=== PATIENT | female | born 1965 | race Caucasian/White ===

== ENCOUNTER 2018-04-14 23:53 | Observation (INO) | payer OTHER, SELFPAY ==
[2018-04-15 01:12] LABS: CKMB 2.9 ng/mL (0-6.6); Troponin I Less than 0.010 ng/mL (< 0.028)
[2018-04-15] MEDS ORDERED: Ondansetron ODT 4 MG TAB SL PRN (02:21)
[2018-04-15] MEDS ORDERED: Acetaminophen 325 MG TAB PO PRN (02:21)
[2018-04-15] MEDS ORDERED: Ondansetron HCl/PF 4 MG/2 ML Vial IVP PRN (02:21)
[2018-04-15 02:53] VITALS: BMI 23.4
[2018-04-15 04:26] LABS: Troponin I Less than 0.010 ng/mL (< 0.028)
[2018-04-15] MEDS ORDERED: Nicotine 21 MG PATCH TD SCH (06:00)
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
[2018-04-15] MEDS ORDERED: Aspirin 81 mg Enteric Coated Tablet PO SCH (09:00)
[2018-04-15] MEDS ORDERED: Famotidine/PF 20 mg/2ml Vial SLOW IVP SCH (09:00)
[2018-04-15] MEDS ORDERED: Enoxaparin Sodium 40 MG/0.4 ML SYRINGE SC SCH (09:00)
[2018-04-15 15:46] VITALS: BP 115/53; TEMP 97.8
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
--- NOTE | 2018-04-17 13:29 | EKG ---
Test Reason : Blood Pressure : / mmHG Vent. Rate : 052 BPM Atrial Rate : 052 BPM P-R Int : 154 ms QRS Dur : 092 ms QT Int : 456 ms P-R-T Axes : -07 023 013 degrees QTc Int : 424 ms Sinus bradycardia with Premature atrial complexes Confirmed by GILBERT SHARMA ([id number]), newspaper or periodical editor IZZY WOLFF ([id number] on 04/17/2018 1:29:04 PM Referred By: Confirmed By:GILBERT SHARMA
== END 2018-04-15 16:50 | disposition home or self-care (01) ==
LOC: ERS 23:53 → 2SW 04-15 01:50
PROVIDERS: ADMIT Internal Medicine; ATTEND Internal Medicine
DX: R07.89 Other chest pain (principal); E78.5 Hyperlipidemia, unspecified; F17.210 Nicotine dependence, cigarettes, uncomplicated; F12.10 Cannabis abuse, uncomplicated; Z88.0 Allergy status to penicillin
CPT/HCPCS: 36415; 82553; 84484; 93005; 93017; 93306; 96372; 96374; 99406; A4216; G0378; J1650; S0028

== ENCOUNTER 2019-04-20 18:44 | Inpatient (IN) | payer OTHER, SELFPAY ==
[~2019-04-20 18:44] MED LIST: ISOVUE-370 76%-LOCM 1 ML ONE; Lidocaine 1% PF 5 ML VIAL ONE; Ondansetron PF 4 MG/2 ML Vial ONE; PHENYLEPHRINE-NS 100 MCG/ML 10 ML SYRINGE ONE; PROPOFOL 200 MG/20 ML VIAL ONE; Succinylcholine Chloride 20 MG/ML 10 ml SYRINGE FS ONE; ePHEDrine 50 MG/ML VIAL ONE
[2019-04-20] MEDS ORDERED: Fentanyl 100 MCG/2 ML VIAL ONE ×4 (18:56→21:28)
[2019-04-20 19:15] LABS: #Basophils 0.1 thou/uL (0.0-0.2); #Eosinphils 0.1 thou/uL (0.0-0.7); #Lymphocytes 4.1 thou/uL (1.20-3.40); #Monocytes 0.8 thou/uL (0.11-0.59); #Neutrophils 11.2 thou/uL (1.40-6.50); %Basophils 0.8 % (0.0-1.0); %Eosinophils 0.5 % (0.0-10.0); %Lymphocytes 25.3 % (21.0-51.0); %Monocytes 4.8 % (0.0-10.0); %Neutrophils 68.6 % (42.0-75.0); Hemoglobin 14.7 g/dL (12.0-16.0); Mean Corpuscular HGB CONC 34.7 g/dL (32.0-36.0); Mean Corpuscular Hemoglobin 31.8 pg (27.0-31.0); Mean Corpuscular Volume 91.8 fL (78.0-98.0); Mean Platelet Volume 6.8 fL (7.4-10.4); Platelet Count 342 thou/uL (130-400); RBC Distribution Width 12.9 % (11.5-14.5); Red Blood Cell (RBC) Count 4.61 mill/uL (4.20-5.40); White Blood Cell (WBC) Count 16.3 thou/uL (4.8-10.8)
[2019-04-20 19:25] LABS: ALT (SGPT) 25 U/L (8-55); AST (SGOT) 22 U/L (5-34); Albumin 4.2 g/dL (3.5-5.0); Alcohol 116 mg/dL (Less than 10); Alkaline Phosphatase 71 U/L (40-110); Anion Gap 18 mmol/L (10-20); BUN (Urea Nitrogen) 11 mg/dL (9.8-20.1); Bilirubin, Total 0.2 mg/dL (0.2-1.2); Calc. Creatinine Clearance 0 mL/min (70-130); Calcium 9.3 mg/dL (7.8-10.44); Carbon Dioxide 14 mmol/L (22-29); Chloride 106 mmol/L (98-107); Estimated GFR-MDRD 61; Globulin 2.7 g/dL (2.4-3.5); Glucose 111 mg/dL (70-105); Lipase 14 U/L (8-78); Potassium 3.4 mmol/L (3.5-5.1); Protein, Total 6.9 g/dL (6.0-8.3); Sodium 135 mmol/L (136-145)
[2019-04-20 19:28] LABS: Prothrombin Time 13.6 SEC (12.0-14.7)
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
[2019-04-20] MEDS ORDERED: Neomycin-Polymyxin 1 ML AMP ONE ×3 (20:12→21:52)
[2019-04-20] MEDS ORDERED: Adacel (T-DAP) 0.5 ML SYRINGE ONE (20:22)
[2019-04-20] MEDS ORDERED: Morphine 4 MG/ML VIAL ONE (20:22)
[2019-04-20] MEDS ORDERED: Ondansetron PF 4 MG/2 ML Vial ONE (20:29)
[2019-04-20] MEDS ORDERED: traMADol HCl 50 MG TAB PO PRN (20:50)
[2019-04-20] MEDS ORDERED: Morphine 4 MG/ML VIAL SLOW IVP PRN (20:50)
[2019-04-20] MEDS ORDERED: HYDROcodone/Acetaminophen 10/325 mg Tablet PO PRN ×2 (20:50)
[2019-04-20] MEDS ORDERED: Ondansetron PF 4 MG/2 ML Vial IVP PRN (20:50)
[2019-04-20] MEDS ORDERED: Morphine 2 MG/ML SYRINGE IVP PRN (20:50)
[2019-04-20] MEDS ORDERED: Fentanyl 100 MCG/2 ML VIAL SLOW IVP PRN (20:50)
[2019-04-20] MEDS ORDERED: Acetaminophen 325 MG TAB PO PRN (20:50)
[2019-04-20] MEDS ORDERED: Midazolam HCl 2 mg/2 ml Vial ONE (21:01)
[2019-04-20] MEDS ORDERED: Gentamicin 80 MG/2 ML VIAL ONE (21:39)
[2019-04-20] MEDS ORDERED: Potassium Phosphate 30 MMOL in Sodium Chloride 0.9% 500 ML IVPB SCH (22:00)
[2019-04-20 22:06] LABS: Magnesium 1.9 mg/dL (1.6-2.6)
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
[2019-04-20] MEDS ORDERED: diphenhydrAMINE 25 MG CAP PO PRN (22:53)
[2019-04-20] MEDS ORDERED: diphenhydrAMINE 50 MG/ML VIAL IM PRN (22:53)
[2019-04-20] MEDS ORDERED: diphenhydrAMINE 50 MG/ML VIAL IVP PRN (22:53)
[2019-04-20] MEDS ORDERED: HYDROmorphone 2 MG/ML VIAL SLOW IVP PRN (22:53)
[2019-04-20] MEDS ORDERED: Morphine Sulfate 2 MG/ML SYRINGE SLOW IVP PRN (22:53)
[2019-04-20] MEDS ORDERED: Ondansetron HCl/PF 4 MG/2 ML Vial IVP PRN (22:53)
[2019-04-20] MEDS ORDERED: Naloxone HCl 0.4 mg/ml Vial IV PRN (22:53)
[2019-04-20] MEDS ORDERED: PACU-Morphine 4MG/ML VIAL SLOW IVP PRN (22:53)
[2019-04-20] MEDS ORDERED: Promethazine HCl 25 MG/ML VIAL SLOW IVP PRN (22:53)
[2019-04-20] MEDS ORDERED: Meperidine HCl/PF 25 MG/ML VIAL SLOW IVP PRN (22:53)
[2019-04-20] MEDS ORDERED: Promethazine HCl 25 MG/ML VIAL IM PRN ×2 (22:53)
[2019-04-20] MEDS ORDERED: Zolpidem Tartrate 5 MG TAB PO PRN (22:53)
[2019-04-20] MEDS ORDERED: Communication Order-Pharmacy FS SCH (23:00)
[2019-04-20] MEDS ORDERED: fentaNYL Citrate/PF 2,000 MCG in Sodium Chloride 0.9% 60 ML IV PRN (23:15)
[2019-04-21] MEDS: Ibuprofen 600 MG TAB PO SCH ×4 (00:30→22:03)
[2019-04-21] MEDS: Aspirin 81 mg Enteric Coated Tablet PO SCH ×3 (00:30→20:32)
[2019-04-21 00:39] VITALS: BMI 29.8
[2019-04-21] MEDS ORDERED: Potassium Phosphate 30 MMOL in Sodium Chloride 0.9% 500 ML IVPB SCH (00:45)
[2019-04-21] MEDS: Sodium Chloride 0.9% 1,000 ML IV SCH ×3 (00:48→20:31)
--- NOTE | 2019-04-21 04:53 | OP ---
DATE OF PROCEDURE: 04/20/2019 PREOPERATIVE DIAGNOSIS: Contaminated degloving laceration of the left forearm from just above the elbow crease to just distal to the wrist crease with laceration of muscle bellies including the palmaris longus and the flexor digitorum profundus to the ring and little fingers. The length of the laceration was 29 cm. PROCEDURE PERFORMED: Irrigation and debridement of the left forearm with partial repair of the muscle belly of the palmaris longus and of the flexor digitorum profundus to the 4th and 5th fingers and very loose closure of the wound. ANESTHESIA: General. TECHNIQUE: The patient received preoperative IV antibiotics, taken to the operating room, placed in supine position. Satisfactory general anesthesia was performed. The forearm had a degloving injury with only about an inch and a half of the skin still attached to the underlying tissue on the ulnar aspect of the forearm. The dorsal and flexor muscles were visualized. The palmaris longus muscle had been completely torn apart and the flexor muscles to the little finger and the ring finger were torn in the mid muscle level. There was significant amount of contamination and initially grass, dirt, and a thorn from a flour was removed and then the entire forearm was copiously irrigated with antibiotic solution using the high-speed high school computer science teacher. The muscle bellies were then more approximated using 0 Vicryl and the skin was loosely closed using Steri-Strips in a crossover configuration. The small venous that had been torn were coagulated. The major blood vessels to the hand were still intact and after the loose closure was performed, the patient's hand had good capillary refill. Sterile dressing along with a long-arm posterior splint with the elbow at 90 degrees and the wrist at 20 degrees of flexion and the finger slightly flexed was placed and allowed to harden. The patient was then awakened, extubated, and transferred to recovery room in stable condition. ESTIMATED BLOOD LOSS: 50 mL. COMPLICATIONS: None. Job ID: [id number]
[2019-04-21] MEDS: CEFAZOLIN 2 GM in Premix Bag 1 BAG IVPB SCH ×3 (05:11→22:04)
[2019-04-21] MEDS: Gentamicin Sulfate 80 MG in Premix Bag 1 BAG IVPB SCH ×3 (05:15→23:13)
[2019-04-21 07:31] LABS: Anion Gap 15 mmol/L (10-20); BUN (Urea Nitrogen) 12 mg/dL (9.8-20.1); Calc. Creatinine Clearance 81 mL/min (70-130); Calcium 8.5 mg/dL (7.8-10.44); Carbon Dioxide 22 mmol/L (22-29); Chloride 105 mmol/L (98-107); Estimated GFR-MDRD 60; Glucose 178 mg/dL (70-105); Magnesium 1.8 mg/dL (1.6-2.6); Phosphorus 4.8 mg/dL (2.3-4.7); Potassium 4.6 mmol/L (3.5-5.1); Sodium 137 mmol/L (136-145)
[2019-04-21] MEDS ORDERED: Magnesium 2 GM/50 ML 2 GM in Premix Bag 1 BAG IVPB SCH (07:45)
[2019-04-21] MEDS ORDERED: Oxazepam 10 MG CAP PO SCH (07:45)
[2019-04-21] MEDS ORDERED: Famotidine 20 MG TAB PO SCH (09:00)
[2019-04-21] MEDS ORDERED: TETANUS AND DIPHTHERIA TOX/PF 0.5 ML DISP.SYRIN IM SCH (09:00)
[2019-04-21] MEDS: Ondansetron PF 4 MG/2 ML Vial IVP PRN ×2 (09:04→15:52)
[2019-04-21] MEDS: Acetaminophen 500 MG TAB PO SCH ×3 (09:04→20:32)
[2019-04-21] MEDS: Folic Acid 1 MG TAB PO SCH (09:04)
[2019-04-21] MEDS: Senokot S 8.6-50 MG TAB PO SCH ×2 (09:05→20:32)
[2019-04-21] MEDS: Thiamine 100 MG TAB PO SCH (09:05)
[2019-04-21] MEDS: Polyethylene Glycol 3350 17 GM Packet PO SCH (09:14)
[2019-04-21 09:47] LABS: #Lymphocytes 0.6 thou/uL (1.20-3.40); #Monocytes 0.8 thou/uL (0.11-0.59); #Neutrophils 12.5 thou/uL (1.40-6.50); %Basophils 0.1 % (0.0-1.0); %Lymphocytes 4.4 % (21.0-51.0); %Monocytes 5.4 % (0.0-10.0); %Neutrophils 90.1 % (42.0-75.0); Hemoglobin 11.8 g/dL (12.0-16.0); Mean Corpuscular HGB CONC 34.9 g/dL (32.0-36.0); Mean Corpuscular Hemoglobin 31.7 pg (27.0-31.0); Mean Platelet Volume 7.1 fL (7.4-10.4); Platelet Count 219 thou/uL (130-400); RBC Distribution Width 12.9 % (11.5-14.5); Red Blood Cell (RBC) Count 3.73 mill/uL (4.20-5.40); White Blood Cell (WBC) Count 13.9 thou/uL (4.8-10.8)
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
[2019-04-21] MEDS: Oxazepam 10 MG CAP PO SCH ×2 (15:42→22:03)
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
[2019-04-22] MEDS ORDERED: Calcium Carbonate 500 MG ChewTAB PO PRN (00:39)
[2019-04-22] MEDS: Acetaminophen 500 MG TAB PO SCH ×5 (01:15→23:18)
[2019-04-22] MEDS: CEFAZOLIN 2 GM in Premix Bag 1 BAG IVPB SCH ×3 (05:25→22:08)
[2019-04-22] MEDS: Sodium Chloride 0.9% 1,000 ML IV SCH ×2 (05:25→16:33)
[2019-04-22] MEDS: Oxazepam 10 MG CAP PO SCH ×3 (05:25→22:09)
[2019-04-22] MEDS: Ibuprofen 600 MG TAB PO SCH ×3 (05:25→22:09)
[2019-04-22] MEDS: Gentamicin Sulfate 80 MG in Premix Bag 1 BAG IVPB SCH ×3 (05:26→23:18)
[2019-04-22 05:59] LABS: #Lymphocytes 1.9 thou/uL (1.20-3.40); #Neutrophils 9.7 thou/uL (1.40-6.50); %Basophils 0.1 % (0.0-1.0); %Eosinophils 0.2 % (0.0-10.0); %Lymphocytes 15.4 % (21.0-51.0); %Neutrophils 76.4 % (42.0-75.0); Hemoglobin 10.5 g/dL (12.0-16.0); Mean Corpuscular HGB CONC 33.2 g/dL (32.0-36.0); Mean Corpuscular Hemoglobin 31.2 pg (27.0-31.0); Mean Corpuscular Volume 93.8 fL (78.0-98.0); Mean Platelet Volume 7.2 fL (7.4-10.4); Platelet Count 197 thou/uL (130-400); Red Blood Cell (RBC) Count 3.38 mill/uL (4.20-5.40); White Blood Cell (WBC) Count 12.6 thou/uL (4.8-10.8)
[2019-04-22 06:11] LABS: Anion Gap 13 mmol/L (10-20); BUN (Urea Nitrogen) 19 mg/dL (9.8-20.1); Calc. Creatinine Clearance 83 mL/min (70-130); Calcium 8.4 mg/dL (7.8-10.44); Carbon Dioxide 21 mmol/L (22-29); Chloride 108 mmol/L (98-107); Estimated GFR-MDRD 62; Glucose 124 mg/dL (70-105); Magnesium 2.1 mg/dL (1.6-2.6); Phosphorus 3.1 mg/dL (2.3-4.7); Potassium 4.2 mmol/L (3.5-5.1); Sodium 138 mmol/L (136-145)
[2019-04-22] MEDS: Thiamine 100 MG TAB PO SCH (08:59)
[2019-04-22] MEDS: Aspirin 81 mg Enteric Coated Tablet PO SCH ×2 (08:59→20:32)
[2019-04-22] MEDS: Senokot S 8.6-50 MG TAB PO SCH ×2 (09:00→20:33)
[2019-04-22] MEDS: Folic Acid 1 MG TAB PO SCH (09:01)
[2019-04-22] MEDS: Polyethylene Glycol 3350 17 GM Packet PO SCH (09:07)
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
--- NOTE | 2019-04-22 11:12 | PRG ---
DATE OF SERVICE: 04/22/2019 SUBJECTIVE: The patient was seen this morning, sitting up in bed with no signs of acute distress. She did report that she felt that her left shoulder may have dislocated overnight. She did not allow Trauma Team to x-ray the extremity at that time. Previous x-rays of the humerus on admission demonstrated no acute fracture or dislocation. The patient has been n.p.o. since midnight. She is going to the OR today with Dr. Faria for further I and D and evaluation of the left forearm degloving injury. OBJECTIVE: VITAL SIGNS: Temperature 97.6, pulse 72, respirations 12, oxygen saturation 94% on room air, and blood pressure 120/72. GENERAL: A well-appearing female, sitting up in bed with no signs of acute distress. PULMONARY: Equal chest rise and fall. Clear breath sounds bilaterally. No signs of acute respiratory distress. CARDIAC: Regular rate and rhythm. No murmurs, gallops, or rubs. GI: Abdomen is soft, nontender, nondistended. EXTREMITIES: 2+ pulses in all extremities. No significant swelling noted. Left shoulder with some downward and posterior deformity. Left forearm and hand with dressing that is in place and clean and dry. Gross motor and sensation are intact. NEUROLOGIC: GCS is 15. LABORATORY FINDINGS: White count 12.6, hemoglobin 10.5, hematocrit 31.7, platelets 176. Sodium 138, potassium 4.2, chloride 108, carbon dioxide 21, BUN 19, creatinine 0.94, glucose 124, phosphorus 3.1, magnesium 2.1. DIAGNOSTIC FINDINGS: X-ray of the left shoulder completed today demonstrates posterior shoulder dislocation, Orthopedic consultation advised. ASSESSMENT: 1. Status post left forearm degloving injury. 2. Left shoulder dislocation. 3. History of diverticulitis and hypoglycemia. 4. Acute traumatic pain. PLAN: The patient will go to the OR today with Dr. Faria for re-evaluation of the left forearm degloving injury. At that time, he will also reduce the left shoulder dislocation. We will follow up his recommendations postoperatively. The patient is n.p.o., continue normal saline at 100 an hour until she has a diet. Once the patient goes to the OR, we would discontinue the ABSENCE MANAGEMENT CONSULTANT, and postoperatively, she will be placed on strictly oral pain medications. Continue to work with Physical and Occupational Therapy. We will make further possible discharge planning decisions after we get updated, recommendations from Dr. Faria postoperatively. The patient was seen and examined by Dr. Gómez and myself this morning during rounds. Job ID: [id number] [facility]
[2019-04-22] MEDS ORDERED: Fentanyl 100 MCG/2 ML VIAL ONE (13:04)
[2019-04-22] MEDS ORDERED: Neomycin-Polymyxin 1 ML AMP ONE (13:22)
[2019-04-22] MEDS ORDERED: Promethazine HCl 25 MG/ML VIAL SLOW IVP PRN (14:30)
[2019-04-22] MEDS ORDERED: Promethazine HCl 25 MG/ML VIAL IM PRN (14:30)
[2019-04-22] MEDS ORDERED: Ondansetron HCl/PF 4 MG/2 ML Vial IVP PRN (14:30)
--- NOTE | 2019-04-22 14:56 | RAD ---
SINGLE FLUOROSCOPIC SPOT IMAGE OF LEFT SHOULDER: HISTORY: COMPARISON: Prior 2 views of the left shoulder dated 04/22/2019. FINDINGS: Single submitted axillary view demonstrates relocation of the posteriorly displaced glenohumeral disl ocation. No visible fracture grossly evident within the single limits. IMPRESSION: Relocation of the left posterior glenohumeral dislocation seen on the prior exam performed at 9:14 AM . Transcribed Date/Time: 04/22/2019 3:01 PM
[2019-04-22] MEDS ORDERED: traMADol HCl 50 MG TAB PO PRN ×2 (15:06)
[2019-04-22] MEDS ORDERED: Morphine 4 MG/ML VIAL SLOW IVP PRN ×2 (15:07→15:25)
[2019-04-22] MEDS ORDERED: HYDROcodone/Acetaminophen 10/325 mg Tablet PO PRN ×2 (15:25)
[2019-04-22] MEDS ORDERED: Acetaminophen 325 MG TAB PO PRN (15:25)
[2019-04-22] MEDS ORDERED: Morphine 2 MG/ML SYRINGE IVP PRN (15:25)
[2019-04-22] MEDS ORDERED: Communication Order-Pharmacy FS SCH (15:30)
[2019-04-22] MEDS ORDERED: Rocuronium Bromide 10 MG/ML (10ML VIAL) ONE (15:45)
[2019-04-22] MEDS ORDERED: Ondansetron PF 4 MG/2 ML Vial ONE (15:45)
[2019-04-22] MEDS ORDERED: Lidocaine 1% PF 5 ML VIAL ONE (15:45)
[2019-04-22] MEDS ORDERED: Glycopyrrolate 0.2 MG/ML 5 ML SYRINGE ONE (15:45)
[2019-04-22] MEDS ORDERED: PROPOFOL 200 MG/20 ML VIAL ONE (15:45)
[2019-04-22] MEDS ORDERED: Nicotine 14 MG PATCH TOP SCH (22:00)
--- NOTE | 2019-04-22 22:15 | OP ---
DATE OF PROCEDURE: 04/22/2019 PREOPERATIVE DIAGNOSES: 1. Status post degloving injury to the left forearm. 2. Posterior dislocation of the left shoulder. POSTOPERATIVE DIAGNOSES: 1. Status post degloving injury to the left forearm. 2. Posterior dislocation of the left shoulder. PROCEDURES PERFORMED: 1. Irrigation and debridement of the left forearm with closure of approximately 40 cm laceration. 2. Closed reduction of posterior dislocation of left shoulder. ANESTHESIA: General. DESCRIPTION OF PROCEDURE: The patient had been receiving IV antibiotics. She was taken to the operating room and placed in supine position. Satisfactory general anesthesia was performed. The left shoulder was manipulated and reduced, and a good reduction was verified with the C-arm. There were no loose fragments in the shoulder joint and the shoulder had good range of motion. The dressing was removed from the left forearm and the temporary closure of the wound was removed. This included grover with Vesseloops. The underlying muscle looked very good. There was only one small area of muscle that was hard and did not have good blood supply. This was debrided. Some of the skin had some dark areas. Some of the skin looked good. After copiously irrigating the wound with Pulsavac with antibiotic ointment, the wound was closed and it measured approximately 40 cm in length. It was closed using skin grover. It was closed over a [place] drain for drainage. Sterile dressing was applied. The patient was placed in a splint to keep the elbow at approximately 90 degrees and the wrist at 20 degrees of flexion. The patient was then awakened, extubated, and transferred to recovery room in stable condition. ESTIMATED BLOOD LOSS: Minimal. COMPLICATIONS: None. Job ID: [id number]
--- NOTE | 2019-04-22 23:20 | PRG ---
DATE OF SERVICE: 04/22/2019 SUBJECTIVE: The patient remains on the surgical floor. The patient is sitting up in bed in no acute distress. The patient reports that her pain is well controlled at this time. The patient is requesting a nicotine patch as she is a daily smoker. The patient is postop irrigation and debridement of the left forearm with closure of approximately [address] Faria and also closed reduction of posterior dislocation of left shoulder. The patient continues to tolerate a regular diet. the patient after having her shoulder reduced earlier states that she felt it dislocated again, but she was able to get it back in place. OBJECTIVE: VITAL SIGNS: Stable, afebrile. GENERAL: Well-appearing female, sitting up in hospital bed, in no distress. PULMONARY: Equal chest rise and fall, good inspiratory and expiratory effort. EXTREMITIES: 2+ pulses in all extremities. Left upper extremity splint in place, left arm in a sling currently. Positive motor and sensation in all extremities. ASSESSMENT: 1. Status post left forearm degloving injury. 2. Left shoulder dislocation status post reduction. 3. Postop irrigation and debridement of left forearm with closure of approximately 40 cm laceration. 4. Acute traumatic pain. 5. History of diverticulitis and hypoglycemia. PLAN: Continue supportive care. Continue pain regimen. We will keep left arm in a sling. Continue to have the patient work with Physical and Occupational Therapy. We will place the patient on nicotine patch. Job ID: [id number]
[2019-04-23 04:44] LABS: #Lymphocytes 2.4 thou/uL (1.20-3.40); #Monocytes 0.7 thou/uL (0.11-0.59); #Neutrophils 5.6 thou/uL (1.40-6.50); %Basophils 0.5 % (0.0-1.0); %Eosinophils 0.4 % (0.0-10.0); %Lymphocytes 27.1 % (21.0-51.0); %Monocytes 7.4 % (0.0-10.0); %Neutrophils 64.6 % (42.0-75.0); Hemoglobin 10.4 g/dL (12.0-16.0); Mean Corpuscular HGB CONC 33.6 g/dL (32.0-36.0); Mean Corpuscular Hemoglobin 31.9 pg (27.0-31.0); Mean Corpuscular Volume 94.9 fL (78.0-98.0); Mean Platelet Volume 7.5 fL (7.4-10.4); Platelet Count 192 thou/uL (130-400); RBC Distribution Width 13.1 % (11.5-14.5); Red Blood Cell (RBC) Count 3.25 mill/uL (4.20-5.40); White Blood Cell (WBC) Count 8.7 thou/uL (4.8-10.8)
[2019-04-23 05:02] LABS: ALT (SGPT) 16 U/L (8-55); AST (SGOT) 50 U/L (5-34); Albumin 3.4 g/dL (3.5-5.0); Alkaline Phosphatase 64 U/L (40-110); Anion Gap 13 mmol/L (10-20); BUN (Urea Nitrogen) 20 mg/dL (9.8-20.1); Bilirubin, Total 0.2 mg/dL (0.2-1.2); Calc. Creatinine Clearance 83 mL/min (70-130); Carbon Dioxide 22 mmol/L (22-29); Chloride 108 mmol/L (98-107); Estimated GFR-MDRD 62; Globulin 2.7 g/dL (2.4-3.5); Glucose 84 mg/dL (70-105); Magnesium 1.8 mg/dL (1.6-2.6); Protein, Total 6.1 g/dL (6.0-8.3); Sodium 139 mmol/L (136-145)
[2019-04-23] MEDS: Acetaminophen 500 MG TAB PO SCH ×2 (05:20→11:26)
[2019-04-23] MEDS: Ibuprofen 600 MG TAB PO SCH ×2 (05:20→13:45)
[2019-04-23] MEDS: Oxazepam 10 MG CAP PO SCH ×2 (05:20→13:45)
[2019-04-23] MEDS: CEFAZOLIN 2 GM in Premix Bag 1 BAG IVPB SCH ×2 (05:20→13:44)
[2019-04-23] MEDS: Gentamicin Sulfate 80 MG in Premix Bag 1 BAG IVPB SCH ×2 (05:27→14:21)
[2019-04-23] MEDS ORDERED: traMADol HCl 50 MG TAB PO PRN ×2 (07:39)
[2019-04-23] MEDS: Folic Acid 1 MG TAB PO SCH (08:36)
[2019-04-23] MEDS: Gabapentin 300 MG CAP PO SCH ×2 (08:36→14:21)
[2019-04-23] MEDS: Aspirin 81 mg Enteric Coated Tablet PO SCH (08:36)
[2019-04-23] MEDS: Thiamine 100 MG TAB PO SCH (08:36)
[2019-04-23] MEDS: Polyethylene Glycol 3350 17 GM Packet PO SCH (08:37)
[2019-04-23] MEDS: Senokot S 8.6-50 MG TAB PO SCH (08:37)
--- NOTE | 2019-04-23 08:39 | PRG ---
DATE OF SERVICE: 04/23/2019 SUBJECTIVE: Ms. Brothers states that she feels that her shoulder is subluxing posteriorly, but overall she has good pain control. OBJECTIVE: VITAL SIGNS: Latest vital signs, temperature 98.2, pulse 77, respiratory rate 18, blood pressure 92/54. EXTREMITIES: The patient has good capillary refill in her left hand. She is able to flex and extend her digits. LABORATORY DATA: CBC: White count 8.7, hemoglobin 10.4, hematocrit 30.9. I explained to the patient that there were areas in the skin that were dark and may not survive. We may need to refer her to a plastic surgeon, but we will see how the skin does. No further surgery is indicated at this time. She will follow up at discharge in my office in a week to a [id number]. Job ID: [id number]
[2019-04-23] MEDS ORDERED: TETANUS AND DIPHTHERIA TOX/PF 0.5 ML DISP.SYRIN IM SCH (09:00)
[2019-04-23 11:12] VITALS: TEMP 97.5
[2019-04-23 11:16] VITALS: BP 95/66
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
== END 2019-04-23 15:23 | disposition home or self-care (01) | DRG 502 ==
LOC: ERS 18:44 → SDC/OP 20:50 → SURG B 20:57
PROVIDERS: ADMIT Surgery; ATTEND Surgery
PROC: 0KDB0ZZ Extraction of Left Lower Arm and Wrist Muscle, Open Approach (ICD-10-PCS; principal; 2019-04-22)
PROC: 0KBB0ZZ Excision of Left Lower Arm and Wrist Muscle, Open Approach (ICD-10-PCS; 2019-04-22)
PROC: 0RSKXZZ Reposition Left Shoulder Joint, External Approach (ICD-10-PCS; 2019-04-22)
DX: S56.124A Laceration of flexor muscle, fascia and tendon of left middle finger at forearm level, initial encounter (principal); S43.085A Other dislocation of left shoulder joint, initial encounter; S56.128A Laceration of flexor muscle, fascia and tendon of left little finger at forearm level, initial encounter; Z98.51 Tubal ligation status; F17.200 Nicotine dependence, unspecified, uncomplicated; F10.129 Alcohol abuse with intoxication, unspecified; E87.6 Hypokalemia; Z88.0 Allergy status to penicillin; Z87.19 Personal history of other diseases of the digestive system; V89.2XXA Person injured in unspecified motor-vehicle accident, traffic, initial encounter; Y93.89 Activity, other specified; Y92.488 Other paved roadways as the place of occurrence of the external cause
CPT/HCPCS: 36415; 70450; 71260; 72125; 74177; 76000; 80048; 80053; 80170; 80307; 83690; 83735; 84100; 85025; 85610; 85730; 86850; 86900; 86901; 90471; 90715; 96374; 96375; G0390; J0690; J1580; J2001; J2250; J2270; J2405; J2704; J3010; J3475; J3490; J7050; Q9966

== ENCOUNTER 2019-04-24 22:02 | Observation (INO) | payer SELFPAY ==
[2019-04-24 23:19] LABS: Anion Gap 12 mmol/L (10-20); BUN (Urea Nitrogen) 16 mg/dL (9.8-20.1); Calc. Creatinine Clearance 0 mL/min (70-130); Calcium 8.7 mg/dL (7.8-10.44); Carbon Dioxide 26 mmol/L (22-29); Chloride 105 mmol/L (98-107); Estimated GFR-MDRD 64; Glucose 87 mg/dL (70-105); Potassium 3.5 mmol/L (3.5-5.1); Sodium 139 mmol/L (136-145)
[2019-04-24] MEDS ORDERED: Ondansetron PF 4 MG/2 ML Vial IVP PRN (23:40)
[2019-04-24] MEDS ORDERED: Morphine 2 MG/ML SYRINGE SLOW IVP PRN (23:40)
[2019-04-24] MEDS ORDERED: Ondansetron ODT 4 MG TAB PO PRN (23:40)
[2019-04-24] MEDS ORDERED: Dextrose 50% Abboject 50 ML SYRINGE SLOW IVP PRN (23:40)
[2019-04-24] MEDS ORDERED: Dextrose 5% in Water 1,000 ML IV PRN (23:40)
[2019-04-24] MEDS ORDERED: hydrALAZINE 20 MG/ML VIAL SLOW IVP PRN (23:40)
[2019-04-24] MEDS ORDERED: Vancomycin HCl 250 MG in Sodium Chloride 0.9% 100 ML IVPB SCH (23:45)
[2019-04-24] MEDS ORDERED: Sodium Chloride 0.9% 1,000 ML IV SCH (23:45)
[2019-04-24] MEDS ORDERED: traMADol HCl 50 MG TAB PO PRN ×2 (23:45)
[2019-04-24] MEDS ORDERED: Morphine 4 MG/ML VIAL ONE (23:51)
[2019-04-24] MEDS ORDERED: Ondansetron PF 4 MG/2 ML Vial ONE (23:51)
[2019-04-24] MEDS ORDERED: Potassium Chloride 20 MEQ TAB PO SCH (23:59)
[2019-04-25 01:06] VITALS: BMI 29.7
[2019-04-25] MEDS: Acetaminophen 500 MG TAB PO SCH ×5 (01:29→23:39)
[2019-04-25] MEDS: Ibuprofen 600 MG TAB PO SCH ×4 (01:31→23:39)
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
[2019-04-25] MEDS ORDERED: Sodium Chloride 0.9% 500 ML IVPB SCH ×2 (04:45→06:00)
[2019-04-25] MEDS ORDERED: Sodium Chloride 0.9% 1,000 ML IV SCH (07:41)
[2019-04-25 07:49] LABS: Lactic Acid 0.8 mmol/L (0.5-2.2)
[2019-04-25] MEDS ORDERED: Vancomycin HCl 1 GM in Premix Bag 1 BAG IVPB SCH (08:00)
[2019-04-25] MEDS: Senokot S 8.6-50 MG TAB PO SCH ×2 (08:18→20:33)
[2019-04-25] MEDS: Gabapentin 300 MG CAP PO SCH ×3 (08:18→20:33)
[2019-04-25] MEDS: Polyethylene Glycol 3350 17 GM Packet PO SCH (08:19)
[2019-04-25] MEDS: Bacitracin 1 PK TOP SCH ×3 (08:19→20:33)
[2019-04-25] MEDS: Famotidine 20 MG TAB PO SCH ×2 (08:19→20:33)
[2019-04-25] MEDS ORDERED: Cefepime 2 GM in Sodium Chloride 0.9% 100 ML IVPB SCH (09:00)
[2019-04-25] MEDS ORDERED: Vancomycin HCl 1 GM in Sodium Chloride 0.9% 250 ML 300 ML IVPB SCH (09:00)
--- NOTE | 2019-04-25 11:20 | PDOC.GSCN ---
Surgery Consult: Exam - Vital signs Vital signs: Vital Signs - Most Recent Temp Pulse Resp BP Pulse Ox 97.7 F 64 20 97/61 100 04/25/19 07:26 04/25/19 07:26 04/25/19 07:26 04/25/19 10:19 04/25/19 07:26 Surgery Consult: Meds - Medications Medications: Current Medications Acetaminophen (Tylenol) 1,000 mg PO Q6HR [facility] Last Admin: 04/25/19 11:17 Dose: 1,000 mg Bacitracin (Bacitracin) 1 pk TOP TID [facility] Last Admin: 04/25/19 08:19 Dose: 1 pk Dextrose/Water (Dextrose 50%) 25 gm SLOW IVP PRN PRN PRN Reason: Hypoglycemia Famotidine (Pepcid) 20 mg PO BID [facility] Last Admin: 04/25/19 08:19 Dose: 20 mg Gabapentin (Neurontin) 300 mg PO TID [facility] Last Admin: 04/25/19 08:18 Dose: 300 mg Glucagon (Glucagon) 1 mg IM PRN PRN PRN Reason: Hypoglycemia Hydralazine HCl (Apresoline) 10 mg SLOW IVP Q6H PRN PRN Reason: SBP > 150 Dextrose/Water (D5w) 1,000 mls @ 0 mls/hr IV .Q0M PRN PRN Reason: Hypoglycemia Vancomycin HCl 1 gm/ Device 200 mls @ 200 mls/hr IVPB 0800,2000 [facility] Last Admin: 04/25/19 08:18 Dose: 200 mls Sodium Chloride (Normal Saline 0.9%) 1,000 mls @ 125 mls/hr IV .Q8H [facility] Cefepime HCl 2 gm/ Sodium (Chloride) 100 mls @ 200 mls/hr IVPB Q12HR [facility] Last Admin: 04/25/19 09:43 Dose: 100 mls Ibuprofen (Motrin) 600 mg PO 0800,1600,2359 [facility] Last Admin: 04/25/19 08:18 Dose: 600 mg Miscellaneous Medication (Pharmacy To Dose) 1 each IVPB PRN PRN PRN Reason: Pharmacy to dose Morphine Sulfate (Morphine) 2 mg SLOW IVP Q2H PRN PRN Reason: Moderate Pain (4-6) Ondansetron HCl (Zofran Odt) 4 mg PO Q6H PRN PRN Reason: Nausea/Vomiting Ondansetron HCl (Zofran) 4 mg IVP Q6H PRN PRN Reason: Nausea Pneumococcal Polyvalent Vaccine (Pneumovax 23) 0.5 ml IM .ONCE ONE Stop: 04/25/19 18:01 Polyethylene Glycol (Miralax) 17 gm PO DAILY [facility] Last Admin: 04/25/19 08:19 Dose: Not Given Senna/Docusate Sodium (Senokot S) 2 tab PO BID [facility] Last Admin: 04/25/19 08:18 Dose: 2 tab Sodium Chloride (Flush - Normal Saline) 10 ml IVF PRN PRN PRN Reason: Saline Flush Tramadol HCl (Ultram) 50 mg PO Q6H PRN PRN Reason: Mild-Moderate Pain (1-5) Tramadol HCl (Ultram) 100 mg PO Q6H PRN PRN Reason: Moderate to Severe Pain (6-10) Last Admin: 04/25/19 01:30 Dose: 100 mg - Allergies Allergies/Adverse Reactions: Allergies Allergy/AdvReac Type Severity Reaction Status Date / Time Penicillins Allergy Hives Verified 04/21/19 01:08 Surgery Consult: Results - Labs Result Diagrams: 04/24/19 22:52 Lab results: Laboratory Results ESR Westergren 44 mm/hr (Less than 30) 04/24/19 22:52 D-Dimer 1.95 *mcg/mL (0.27-0.43) H 04/24/19 23:53 Sodium 139 mmol/L (136-145) 04/24/19 22:52 Potassium 3.5 mmol/L (3.5-5.1) 04/24/19 22:52 Chloride 105 mmol/L (98-107) 04/24/19 22:52 Carbon Dioxide 26 mmol/L (22-29) 04/24/19 22:52 Anion Gap 12 mmol/L (10-20) 04/24/19 22:52 BUN 16 mg/dL (9.8-20.1) 04/24/19 22:52 Creatinine 0.92 mg/dL (0.6-1.1) 04/24/19 22:52 Estimated GFR (MDRD) 64 04/24/19 22:52 Glucose 87 mg/dL (70-105) 04/24/19 22:52 POC Glucose 99 mg/dL (70-110) 04/25/19 04:49 Lactic Acid 0.8 mmol/L (0.5-2.2) 04/25/19 07:22 Calcium 8.7 mg/dL (7.8-10.44) 04/24/19 22:52 C-Reactive Protein 11.52 mg/dL (= or < 0.5) H 04/24/19 22:52 Cortisol 7.00 ug/dL (See Ranges) 04/25/19 09:32 Plasma Alcohol Less than 10 mg/dL (Less than 10) 04/25/19 08:00
[2019-04-25] MEDS ORDERED: Hydrocortisone Sod Succ/PF 100 mg/2 ml Vial IVP SCH ×2 (12:15→18:00)
--- NOTE | 2019-04-25 13:44 | PRG ---
DATE OF SERVICE: 04/25/2019 SUBJECTIVE: This patient is a 53-year-old female, who had a degloving injury to her left forearm 5 days ago on 04/20. The patient underwent irrigation and debridement. She was taken back to the OR on 12/20, again underwent irrigation and debridement and then closure over a drain. The patient developed more pain in her left hand and presented back to the emergency room. There was concern that she had an active infection. She states that she has had no fever or chills. She was admitted for infection of the left forearm and was started on IV antibiotics. PHYSICAL EXAMINATION: The laceration site looks very good. There is no active drainage from the laceration site and no erythema at the laceration site. She does have swelling in her left hand as it is expected for this type of injury. The patient still has a [place] drain protruding from the wound to prevent abscess formation. The skin is dark as it is expected since the patient was informed that she probably will have some skin , and it will have to declare itself in the near future. PLAN: I would not recommend any additional surgical intervention at this time. I did explain to the patient that she may have an active infection in the future, and she may require additional irrigation and debridement of the wound, but I do not feel that any surgical procedure is indicated at this time. She can be discharged on antibiotics. I would recommend Bactrim DS twice a day and rifampin 300 mg twice a day for at least 10 days, and I want to see the patient back in office in 1 week. Job ID: [id number]
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
[2019-04-25] MEDS: Hydrocortisone Sod Succ/PF 100 mg/2 ml Vial IVP SCH ×2 (17:27→23:39)
[2019-04-25] MEDS: Sulfameth/Trimethoprim DS 800-160mg TAB PO SCH (20:33)
[2019-04-25] MEDS: Aspirin 81 mg Enteric Coated Tablet PO SCH (20:33)
[2019-04-25] MEDS: Rifampin 300 MG CAP PO SCH (21:40)
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
[2019-04-26] MEDS: Acetaminophen 500 MG TAB PO SCH ×2 (05:40→11:14)
[2019-04-26] MEDS: Hydrocortisone Sod Succ/PF 100 mg/2 ml Vial IVP SCH ×2 (05:40→11:13)
[2019-04-26] MEDS: Ibuprofen 600 MG TAB PO SCH (08:29)
[2019-04-26] MEDS: Sulfameth/Trimethoprim DS 800-160mg TAB PO SCH (08:30)
[2019-04-26] MEDS: Famotidine 20 MG TAB PO SCH (08:31)
[2019-04-26] MEDS: Aspirin 81 mg Enteric Coated Tablet PO SCH (08:31)
[2019-04-26] MEDS: Gabapentin 300 MG CAP PO SCH (08:31)
[2019-04-26] MEDS: Polyethylene Glycol 3350 17 GM Packet PO SCH (08:31)
[2019-04-26] MEDS: Senokot S 8.6-50 MG TAB PO SCH (08:31)
[2019-04-26] MEDS: Bacitracin 1 PK TOP SCH (08:32)
[2019-04-26] MEDS: Rifampin 300 MG CAP PO SCH (09:29)
[2019-04-26 11:15] VITALS: BP 105/58; TEMP 98.3
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
== END 2019-04-26 12:25 | disposition home or self-care (01) ==
LOC: ERS 22:02 → SURG A 23:40
PROVIDERS: ADMIT Specialist; ATTEND Specialist
DX: T81.49XA Infection following a procedure, other surgical site, initial encounter (principal); F17.210 Nicotine dependence, cigarettes, uncomplicated; E78.00 Pure hypercholesterolemia, unspecified; E78.5 Hyperlipidemia, unspecified; M19.90 Unspecified osteoarthritis, unspecified site; E27.40 Unspecified adrenocortical insufficiency; Z79.82 Long term (current) use of aspirin; Z79.899 Other long term (current) drug therapy; Z88.0 Allergy status to penicillin; Z98.890 Other specified postprocedural states
CPT/HCPCS: 36415; 36416; 80307; 82533; 83605; 85379; 85652; 86140; 90471; 90732; 96361; 96365; 96366; 96367; 96375; 96376; G0009; G0378; J0692; J1720; J2270; J2405; J3370; J3490

== ENCOUNTER 2025-06-14 11:16 | Outpatient (CLI) | payer OTHER | END 2025-06-14 11:17 | disposition home or self-care (01) | LOC: BICMAMMO 11:16 | DX: Z12.31 Encounter for screening mammogram for malignant neoplasm of breast (principal); Z80.3 Family history of malignant neoplasm of breast | CPT/HCPCS: 77063; 77067 ==